=== PATIENT | male | born 1995 | race Caucasian/White ===

== ENCOUNTER 2017-06-17 13:35 | Emergency (ER) | payer SELFPAY ==
--- NOTE | 2017-06-17 13:44 | NUR ---
LWBT, CALLED X3, NOM ANSWER.
== END 2017-06-17 13:47 | disposition left against medical advice (07) ==
LOC: ER 13:35
DX: Z53.21 Procedure and treatment not carried out due to patient leaving prior to being seen by health care provider (principal)